=== PATIENT | female | born 1980 | race Caucasian/White ===

== ENCOUNTER 2017-10-11 07:34 | Emergency (ER) | payer OTHER ==
[~2017-10-11] VITALS: Ht 162.6 cm; Wt 110.0 kg
[~2017-10-11 07:34] MED LIST: CARA1TAB2 PO; CELE20TA PO; DONN16.2 PO; IBUP600T26 PO; PANT20TA PO; RANI150C PO; TYLE325T5 PO
[2017-10-11] MEDS ORDERED: XANA0.25 PO (07:51)
[2017-10-11] MEDS ORDERED: KLON1TAB PO (07:51)
[2017-10-11] MEDS ORDERED: ONDANSETRON 4MG/2ML VIAL (J2405) IV ONE (09:15)
[2017-10-11] MEDS: diphenhydrAMINE INJ 50MG/ML VIAL (J1200) IV STA ×2 (09:27→09:32)
[2017-10-11] MEDS ORDERED: NS 1,000 ML IV ONE (09:30)
[2017-10-11 09:43] LABS: BASO # 0.1 10^3/uL (0.0-0.2); BASO % 0.8 % (0.0-1.0); EOS # 0.1 10^3/uL (0.0-0.50); EOS % 0.5 % (0.0-3.0); IMMATURE GRANULOCYTE % 0.4 % (0-0); LYMPH # 2.1 10^3/uL (1.5-4.5); LYMPH % 20.1 % (24.0-44.0); MEAN CORPUSCULAR HEMOGLOBIN 30.8 pg (27.0-33.0); MEAN CORPUSCULAR HGB CONC 33.6 g/dl (32.0-36.5); MEAN CORPUSCULAR VOLUME 91.7 fl (80.0-96.0); MONO # 0.7 10^3/uL (0.0-0.8); MONO % 6.5 % (0.0-5.0); NEUTROPHILS # 7.3 10^3/uL (1.8-7.7); NEUTROPHILS % 71.7 % (36.0-66.0); PLATELET COUNT, AUTOMATED 362 10^3/uL (150-450); RED CELL DISTRIBUTION WIDTH 13.2 % (11.5-14.5); WHITE BLOOD COUNT 10.2 10^3/uL (4.0-10.0)
[2017-10-11 10:09] LABS: ALBUMIN 4.4 GM/DL (3.2-5.2); ALBUMIN/GLOBULIN RATIO 1.16 (1.00-1.93); ALKALINE PHOSPHATASE 113 U/L (45-117); ALT/SGPT 77 U/L (12-78); ANION GAP 10 MEQ/L (8-16); AST/SGOT 53 U/L (7-37); BILIRUBIN,TOTAL 0.5 MG/DL (0.2-1.0); BLOOD UREA NITROGEN 7 MG/DL (7-18); CALCIUM LEVEL 9.5 MG/DL (8.5-10.1); CARBON DIOXIDE LEVEL 25 MEQ/L (21-32); CHLORIDE LEVEL 103 MEQ/L (98-107); CREATININE FOR GFR 0.96 MG/DL (0.55-1.02); GLOMERULAR FILTRATION RATE > 60.0 (>60); GLUCOSE, FASTING 99 MG/DL (70-105); SODIUM LEVEL 138 MEQ/L (136-145); TOTAL PROTEIN 8.2 GM/DL (6.4-8.2)
[2017-10-11] MEDS ORDERED: CEFD1CAP8 PO (10:46)
[2017-10-11] MEDS ORDERED: ZOFR4TAB3 PO (10:46)
[2017-10-11 10:52] VITALS: BP 144/78
[2017-10-13 14:18] LABS: WEST NILE VIRUS ANTIBODY IgM Negative (Negative)
== END 2017-10-11 11:02 | disposition home or self-care (01) ==
LOC: M ED 07:34
DX: J01.90 Acute sinusitis, unspecified (principal); K52.9 Noninfective gastroenteritis and colitis, unspecified
CPT/HCPCS: 80053; 85025; 86788; 86789; 96374; 96375; 99284; J2405

== ENCOUNTER → 2018-10-03 | Outpatient (REF) | payer OTHER | LOC: M SFHCSACK 10:59 | DX: J02.9 Acute pharyngitis, unspecified (principal) ==

== ENCOUNTER → 2019-06-29 | Outpatient (REF) | payer OTHER ==
[~2019-06-29] MED LIST changes: +CEFD1CAP8 PO; +KLON1TAB PO; +XANA0.25 PO; +ZOFR4TAB14 PO
[2019-06-29 14:55] LABS: BASO # 0.1 10^3/uL (0.0-0.2); EOS # 0.1 10^3/uL (0.0-0.50); EOS % 1.3 % (0.0-3.0); HEMATOCRIT 40.7 % (36.0-47.0); HEMOGLOBIN 13.6 g/dl (12.0-15.5); LYMPH # 2.1 10^3/uL (1.5-4.5); LYMPH % 34.3 % (24.0-44.0); MEAN CORPUSCULAR HEMOGLOBIN 31.6 pg (27.0-33.0); MEAN CORPUSCULAR HGB CONC 33.4 g/dl (32.0-36.5); MEAN CORPUSCULAR VOLUME 94.4 fl (80.0-96.0); MONO # 0.4 10^3/uL (0.0-0.8); MONO % 6.4 % (0.0-5.0); NEUTROPHILS # 3.5 10^3/uL (1.8-7.7); NEUTROPHILS % 56.5 % (36.0-66.0); PLATELET COUNT, AUTOMATED 295 10^3/uL (150-450); RED BLOOD COUNT 4.31 10^6/uL (4.00-5.40); WHITE BLOOD COUNT 6.1 10^3/uL (4.0-10.0)
[2019-06-29 15:13] LABS: ALBUMIN 4.1 GM/DL (3.2-5.2); ALT/SGPT 86 U/L (12-78); BILIRUBIN,TOTAL 0.3 MG/DL (0.2-1.0); BLOOD UREA NITROGEN 9 MG/DL (7-18); CALCIUM LEVEL 9.1 MG/DL (8.5-10.1); CARBON DIOXIDE LEVEL 24 MEQ/L (21-32); CHLORIDE LEVEL 108 MEQ/L (98-107); CHOLESTEROL LEVEL 270 MG/DL (<200); CHOLESTEROL RISK RATIO 5.744 (<5); CREATININE FOR GFR 0.72 MG/DL (0.55-1.30); FREE T4 0.91 NG/DL (0.76-1.46); GLOMERULAR FILTRATION RATE > 60.0 (>60); GLUCOSE, FASTING 82 MG/DL (70-100); HDL CHOLESTEROL 47 MG/DL (>40); NON-HDL-C 223 MG/DL; POTASSIUM SERUM 4.2 MEQ/L (3.5-5.1); SODIUM LEVEL 142 MEQ/L (136-145); TOTAL 25(OH) VITAMIN D 10.2 NG/ML (30.0-100.0); TOTAL PROTEIN 7.1 GM/DL (6.4-8.2); TRIGLYCERIDES LEVEL 439 MG/DL (<150)
== END ==
LOC: M SFHCSACK 09:49
PROVIDERS: ATTEND Physician Assistant
DX: Z13.220 Encounter for screening for lipoid disorders (principal); Z13.29 Encounter for screening for other suspected endocrine disorder; Z13.21 Encounter for screening for nutritional disorder

== ENCOUNTER → 2019-08-29 | Outpatient (REF) | payer OTHER ==
[2019-08-29 16:11] LABS: BASO # 0.1 10^3/uL (0.0-0.2); BASO % 0.7 % (0.0-1.0); EOS # 0.1 10^3/uL (0.0-0.5); HEMATOCRIT 40.8 % (36.0-47.0); HEMOGLOBIN 13.7 g/dl (12.0-15.5); LYMPH # 2.2 10^3/uL (1.5-5.0); LYMPH % 26.7 % (24.0-44.0); MEAN CORPUSCULAR HEMOGLOBIN 32.8 pg (27.0-33.0); MEAN CORPUSCULAR HGB CONC 33.6 g/dl (32.0-36.5); MEAN CORPUSCULAR VOLUME 97.6 fl (80.0-96.0); MONO # 0.5 10^3/uL (0.0-0.8); MONO % 5.5 % (0.0-5.0); NEUTROPHILS # 5.4 10^3/uL (1.5-8.5); NEUTROPHILS % 65.7 % (36.0-66.0); PLATELET COUNT, AUTOMATED 320 10^3/uL (150-450); RED BLOOD COUNT 4.18 10^6/uL (4.00-5.40); WHITE BLOOD COUNT 8.2 10^3/uL (4.0-10.0)
[2019-08-29 16:28] LABS: ALBUMIN 4.5 GM/DL (3.2-5.2); ALT/SGPT 79 U/L (12-78); BILIRUBIN,TOTAL 0.8 MG/DL (0.2-1.0); BLOOD UREA NITROGEN 12 MG/DL (7-18); CALCIUM LEVEL 9.1 MG/DL (8.5-10.1); CARBON DIOXIDE LEVEL 23 MEQ/L (21-32); CHLORIDE LEVEL 106 MEQ/L (98-107); CREATININE FOR GFR 0.88 MG/DL (0.55-1.30); GLOMERULAR FILTRATION RATE > 60.0 (>60); GLUCOSE, FASTING 96 MG/DL (70-100); POTASSIUM SERUM 4.1 MEQ/L (3.5-5.1); SODIUM LEVEL 138 MEQ/L (136-145); TOTAL PROTEIN 7.5 GM/DL (6.4-8.2)
[2019-08-29 16:32] LABS: HEMOGLOBIN A1c 5.7 %
== END ==
LOC: M LAB REF 15:24
PROVIDERS: ATTEND Surgery
DX: Z01.812 Encounter for preprocedural laboratory examination (principal); M79.7 Fibromyalgia; K58.9 Irritable bowel syndrome, unspecified; G44.229 Chronic tension-type headache, not intractable; K26.9 Duodenal ulcer, unspecified as acute or chronic, without hemorrhage or perforation

== ENCOUNTER → 2019-10-08 | Outpatient (REF) | payer OTHER ==
[2019-10-08 14:17] LABS: BASO # 0.1 10^3/uL (0.0-0.2); BASO % 0.9 % (0.0-1.0); EOS # 0.1 10^3/uL (0.0-0.5); EOS % 1.2 % (0.0-3.0); HEMATOCRIT 41.6 % (36.0-47.0); HEMOGLOBIN 13.8 g/dl (12.0-15.5); LYMPH # 2.1 10^3/uL (1.5-5.0); LYMPH % 27.6 % (24.0-44.0); MEAN CORPUSCULAR HEMOGLOBIN 31.9 pg (27.0-33.0); MEAN CORPUSCULAR HGB CONC 33.2 g/dl (32.0-36.5); MEAN CORPUSCULAR VOLUME 96.1 fl (80.0-96.0); MONO # 0.5 10^3/uL (0.0-0.8); MONO % 6.4 % (0.0-5.0); NEUTROPHILS # 4.9 10^3/uL (1.5-8.5); NEUTROPHILS % 63.5 % (36.0-66.0); PLATELET COUNT, AUTOMATED 295 10^3/uL (150-450); RED BLOOD COUNT 4.33 10^6/uL (4.00-5.40); WHITE BLOOD COUNT 7.7 10^3/uL (4.0-10.0)
[2019-10-08 14:23] LABS: ALBUMIN 4.5 GM/DL (3.2-5.2); ALT/SGPT 77 U/L (12-78); BILIRUBIN,TOTAL 0.5 MG/DL (0.2-1.0); BLOOD UREA NITROGEN 9 MG/DL (7-18); CALCIUM LEVEL 9.4 MG/DL (8.5-10.1); CARBON DIOXIDE LEVEL 23 MEQ/L (21-32); CHLORIDE LEVEL 107 MEQ/L (98-107); CHOLESTEROL LEVEL 203 MG/DL (<200); CHOLESTEROL RISK RATIO 3.171 (<5); CREATININE FOR GFR 0.82 MG/DL (0.55-1.30); GLOMERULAR FILTRATION RATE > 60.0 (>60); GLUCOSE, FASTING 91 MG/DL (70-100); HDL CHOLESTEROL 64 MG/DL (>40); LDL CHOLESTEROL 60 MG/DL (<100); NON-HDL-C 139 MG/DL; POTASSIUM SERUM 4.2 MEQ/L (3.5-5.1); SODIUM LEVEL 140 MEQ/L (136-145); TOTAL PROTEIN 7.8 GM/DL (6.4-8.2); TRIGLYCERIDES LEVEL 395 MG/DL (<150)
[2019-10-08 14:34] LABS: TOTAL 25(OH) VITAMIN D 36.8 NG/ML (30.0-100.0)
== END ==
LOC: M SFHCSACK 09:15
PROVIDERS: ATTEND Physician Assistant
DX: K21.9 Gastro-esophageal reflux disease without esophagitis (principal); E78.2 Mixed hyperlipidemia; E55.9 Vitamin D deficiency, unspecified

== ENCOUNTER → 2019-11-19 | Outpatient (CLI) | payer OTHER ==
[2019-11-19 14:21] LABS: BASO # 0.1 10^3/uL (0.0-0.2); BASO % 0.9 % (0.0-1.0); EOS # 0.1 10^3/uL (0.0-0.5); EOS % 1.7 % (0.0-3.0); HEMOGLOBIN 12.9 g/dl (12.0-15.5); LYMPH # 1.6 10^3/uL (1.5-5.0); LYMPH % 27.7 % (24.0-44.0); MEAN CORPUSCULAR HEMOGLOBIN 31.1 pg (27.0-33.0); MEAN CORPUSCULAR HGB CONC 32.3 g/dl (32.0-36.5); MEAN CORPUSCULAR VOLUME 96.4 fl (80.0-96.0); MONO # 0.6 10^3/uL (0.0-0.8); MONO % 9.6 % (0.0-5.0); NEUTROPHILS # 3.5 10^3/uL (1.5-8.5); NEUTROPHILS % 59.8 % (36.0-66.0); PLATELET COUNT, AUTOMATED 317 10^3/uL (150-450); RED BLOOD COUNT 4.15 10^6/uL (4.00-5.40); WHITE BLOOD COUNT 5.9 10^3/uL (4.0-10.0)
[2019-11-19 14:39] LABS: ALBUMIN 4.7 GM/DL (3.2-5.2); ALT/SGPT 186 U/L (12-78); BILIRUBIN,TOTAL 0.3 MG/DL (0.2-1.0); BLOOD UREA NITROGEN 5 MG/DL (7-18); CALCIUM LEVEL 9.4 MG/DL (8.5-10.1); CARBON DIOXIDE LEVEL 24 MEQ/L (21-32); CHLORIDE LEVEL 109 MEQ/L (98-107); CREATININE FOR GFR 0.69 MG/DL (0.55-1.30); FERRITIN 351 NG/ML (8-252); GLOMERULAR FILTRATION RATE > 60.0 (>60); GLUCOSE, FASTING 91 MG/DL (70-100); IRON (FE) 60 UG/DL (50-170); MAGNESIUM LEVEL 2.3 MG/DL (1.8-2.4); PERCENT SATURATION 18.4 % (13.2-45.0); PHOSPHORUS LEVEL 3.6 MG/DL (2.5-4.9); POTASSIUM SERUM 4.1 MEQ/L (3.5-5.1); SODIUM LEVEL 143 MEQ/L (136-145); TOTAL IRON BINDING CAPACITY 326 UG/DL (250-450); TOTAL PROTEIN 7.3 GM/DL (6.4-8.2)
[2019-11-19 15:15] LABS: TOTAL 25(OH) VITAMIN D 71.5 NG/ML (30.0-100.0); VITAMIN B12 LEVEL 695 PG/ML (247-911)
[2019-11-20 08:47] LABS: HEMOGLOBIN A1c 5.5 %
== END ==
LOC: M SFHCSACK 09:59
PROVIDERS: ATTEND Surgery
DX: K91.2 Postsurgical malabsorption, not elsewhere classified (principal); E55.9 Vitamin D deficiency, unspecified; Z98.84 Bariatric surgery status
CPT/HCPCS: 36415; 80053; 82306; 82607; 82728; 82747; 83036; 83550; 83735; 84100; 84425; 85025; G0463

== ENCOUNTER 2021-03-18 21:00 | Observation (INO) | payer OTHER, MEDICAID ==
[~2021-03-18] VITALS: Ht 162.6 cm; Wt 65.0 kg
[2021-03-18] MEDS ORDERED: PANTOPRAZOLE 40MG VIAL (C9113 PER 1) IV ONE (22:35)
[2021-03-18] MEDS ORDERED: METOCLOPRAMIDE INJ 10MG/2ML VIAL (J2765 PER 1) IV ONE (22:35)
[2021-03-18] MEDS ORDERED: MORPHINE 4 MG/ML 1ML VIAL/SYRINGE (J2270) IV ONE (22:35)
[2021-03-18] MEDS ORDERED: NS 1,000 ML IV ONE (22:35)
[2021-03-18 23:07] LABS: BASO # 0.1 10^3/uL (0.0-0.2); BASO % 1.6 % (0.0-1.0); EOS # 0.1 10^3/uL (0.0-0.5); EOS % 2.1 % (0.0-3.0); HEMATOCRIT 42.2 % (36.0-47.0); HEMOGLOBIN 13.9 g/dl (12.0-15.5); LYMPH % 46.3 % (24.0-44.0); MEAN CORPUSCULAR HEMOGLOBIN 32.7 pg (27.0-33.0); MEAN CORPUSCULAR HGB CONC 32.9 g/dl (32.0-36.5); MEAN CORPUSCULAR VOLUME 99.3 fl (80.0-96.0); MONO # 0.4 10^3/uL (0.0-0.8); MONO % 8.8 % (2.0-8.0); NEUTROPHILS # 1.8 10^3/uL (1.5-8.5); PLATELET COUNT, AUTOMATED 192 10^3/uL (150-450); RED BLOOD COUNT 4.25 10^6/uL (4.00-5.40); WHITE BLOOD COUNT 4.3 10^3/uL (4.0-10.0)
[2021-03-18] MEDS ORDERED: ISOVUE-370 76% 100ML VIAL As Ordered ONE (23:27)
[2021-03-18 23:43] LABS: ALBUMIN 4.3 GM/DL (3.2-5.2); BILIRUBIN,DIRECT 0.1 MG/DL (0.0-0.2); BILIRUBIN,TOTAL 0.4 MG/DL (0.2-1.0); TOTAL PROTEIN 7.3 GM/DL (6.4-8.2)
--- NOTE | 2021-03-19 00:23 | REPVR ---
PROCEDURE INFORMATION: Exam: CT Abdomen And Pelvis With Contrast Exam date and time: 03/18/2021 10:35 PM Age: 40 years old Clinical indication: Abdominal pain; Generalized; Patient HX: Vomits when eats; Additional info: Abd pain/unable to keep food down TECHNIQUE: Imaging protocol: Computed tomography of the abdomen and pelvis with contrast. Axial, coronal and sagittal reformatted images were created and reviewed. Radiation optimization: All CT scans at this facility use at least one of these dose optimization techniques: automated exposure control; mA and/or kV adjustment per patient size (includes targeted exams where dose is matched to clinical indication); or iterative reconstruction. Contrast material: ISO; Contrast volume: 100 ml; Contrast route: INTRAVENOUS (IV); COMPARISON: CT ABD PELVIS W/O CONTRAST 08/29/2014 1:41 PM FINDINGS: Liver: Mild hepatomegaly. Diffuse hepatic steatosis. Gallbladder and bile ducts: Mild gallbladder distention without radiodense gallstones. Pancreas: Unremarkable. Spleen: Unremarkable. Adrenal glands: Normal. No mass. Kidneys and ureters: No mass. No radiodense calculi. No hydronephrosis. Stomach and bowel: Status post gastric bypass surgery. No obstruction. No bowel wall thickening. No pneumatosis. Appendix: Normal. Intraperitoneal space: No free fluid. No organized fluid collection. No free air. Vasculature: Unremarkable. No aneurysm. Lymph nodes: No pathologically enlarged lymph nodes. Urinary bladder: Unremarkable as visualized. Reproductive: Unremarkable. Bones/joints: No acute osseous abnormality. Mild degenerative changes. Soft tissues: Unremarkable. IMPRESSION: 1. No CT evidence of acute intra-abdominal or pelvic pathology. 2. Additional findings, as above. Electronically signed by: Armando Aguero On 03/19/2021 00:23:54 AM
--- NOTE | 2021-03-19 01:50 | REPVR ---
PROCEDURE INFORMATION: Exam: US Abdomen, Limited; Right Upper Quadrant Exam date and time: 03/19/2021 1:24 AM Age: 40 years old Clinical indication: Abdominal pain; Acute; Additional info: Ruq pain/elevated lfts TECHNIQUE: Imaging protocol: US abdomen. Real time ultrasound with image documentation. Limited exam focused on the right upper quadrant. COMPARISON: CT ABD/PEL W/IV CONTRAST ONLY 03/18/2021 11:31 PM FINDINGS: Liver: Echogenic, consistent with fatty infiltration. Gallbladder: Mildly distended with a small amount of dependent sludge. No gallstones. No gallbladder wall thickening or pericholecystic fluid. Common bile duct: Mildly dilated to approximately 8 mm. No stones. Pancreas: Unremarkable as visualized. Right kidney: No mass. No definite stones. No hydronephrosis. IMPRESSION: 1. Mild common bile duct dilatation to approximately 8 mm. Correlate with LFTs. 2. Mild gallbladder distention with a small amount of dependent sludge. No sonographic evidence of acute cholecystitis. 3. Fatty liver. Electronically signed by: Armando Aguero On 03/19/2021 01:50:31 AM
[2021-03-19] MEDS ORDERED: HYDROMORPHONE HCL 0.5 MG/ 0.5 ML SYRINGE (J1170 PER 1) IV ONE (02:20)
[2021-03-19] MEDS ORDERED: MAALOX 30 ML SUSP *UDC PO PRN ×2 (02:45→09:10)
[2021-03-19] MEDS ORDERED: MOM 30ML SUSPENSION UDC PO PRN (02:45)
[2021-03-19] MEDS ORDERED: BIOT1CAP2 PO (02:55)
[2021-03-19] MEDS ORDERED: VITMTA PO (02:55)
[2021-03-19] MEDS ORDERED: ZOFR4TAB16 PO (02:55)
[2021-03-19] MEDS ORDERED: VITA-172 PO (02:55)
--- NOTE | 2021-03-19 02:59 | HPEPDOC ---
[facility] Medical History & Physical Date of Admission March 19, 2021 Date of Service: March 19, 2021 History and Physical CHIEF COMPLAINT: Abdominal pain HISTORY OF PRESENT ILLNESS: 40-year-old female history of gastric bypass surgery who presents to the emergency department because of worsening abdominal pain. Patient tells me that for the past 6 days she's been having a poor appetite especially to food she feels nauseated and the smell of food and has been having right upper quadrant pain that is intermittent and ranges from 2 out of 10 to 7 out of 10. She has difficulty describing the pain but says it's sharp at times and dull at other times. Pain does not radiate. She hasn't experienced similar pain in the past. Her pain is not associated with any fevers or chills but it's associated with nausea and occasional vomiting. Movement exacerbates the pain while lying flat makes it better. Imaging in the emergency department shows mild common bile duct dilation and small amount of sludge in the gallbladder. Gastroenterology Dr. Hill was contacted and recommended patient admitted for MRCP and IV fluid hydration. PAST MEDICAL/SURGICAL HISTORY: Gastric bypass surgery October 2019 Hysterectomy at age 25 due to excessive bleeding Oophorectomy Lysis of adhesion surgery 2x SOCIAL HISTORY: Endorses drinking about 1 glass of wine with meals at night Endorses using electronic cigarettes Denies illicit drug use FAMILY HISTORY: Reviewed and none contributory to this admission ALLERGIES: Please see below. REVIEW OF SYSTEMS: 10 point review of systems complete all negative otherwise stated in HPI HOME MEDICATIONS: Please see below. PHYSICAL EXAMINATION: Constitutional: Awake and alert, in no apparent distress ENT: Sclera are clear. Mucosa is moist. Respiratory: Lungs CTA bilaterally. No respiratory distress. Cardiovascular: RRR S1 and S2 are normal, no murmur Gastrointestinal: Abdomen is soft, non distended, mild RUQ tender discomfort on deep palpation, BS present. Musculoskeletal: No lower extremity edema. Neurologic: No focal neurological deficit. Mental Status: A&O x3, normal affect Skin: Warm, dry LABORATORY DATA: See below. IMAGING: See chart MICROBIOLOGY: Please see below. ASSESSMENT/PLAN # RUQ abdominal pain: imaging shows common bile duct dilation 8mm and gall bladd er distension with some sludge. Dr Hill Gi recommended admission for MRCP in the AM. NPO incase she needs ERCP. Pain control. IV Zofran for nausea. Hydration with IVF. # Transaminitis: Elevation in AST/ALT/Alk phos. Bili ok. Could be 2/2 passing of gallstone. Fu Hepatitis panel. Fu repeat liver enzymes in the AM. Consider GI consult if worsening. Fu MRCP results. # DVT prophylaxis: Heparin A [facility] Vital Signs Vital Signs Date Time Temp Pulse Resp B/P (MAP) Pulse Ox O2 Delivery O2 Flow Rate FiO2 03/19/21 02:25 18 03/18/21 21:29 03/18/21 21:00 98.4 96 97 Room Air Laboratory Data Labs 24H Laboratory Tests 2 03/18/21 22:49: Immature Granulocyte % (Auto) 0.2, Neutrophils (%) (Auto) 41.0, Lymphocytes (%) (Auto) 46.3H, Monocytes (%) (Auto) 8.8H, Eosinophils (%) (Auto) 2.1, Basophils (%) (Auto) 1.6H, Neutrophils # (Auto) 1.8, Lymphocytes # (Auto) 2.0, Monocytes # (Auto) 0.4, Eosinophils # (Auto) 0.1, Basophils # (Auto) 0.1, Nucleated Red Blood Cells % (auto) 0.0, Lactic Acid Level 1.8, Total Bilirubin 0.4, Direct Bilirubin 0.1, Aspartate Amino Transf (AST/SGOT) 334H, Alanine Aminotransferase (ALT/SGPT) 163H, Alkaline Phosphatase 168H, Total Protein 7.3, Albumin 4.3, Albumin/Globulin Ratio 1.4, Lipase 142 03/18/21 23:18: POC Glucose (Misc Panel) 93, POC Sodium (Misc Panel) 140, POC Potassium (Misc Panel) 3.9, POC Chloride (Misc Panel) 99, POC Total CO2 (Misc Panel) 31.0H, POC Blood Urea Nitrogen (Misc Panel 7L, POC Ionized Calcium (Misc Panel) 4.3L, POC Creatinine (Misc Panel) 0.9, POC Hematocrit (Misc Panel) 42.0 03/19/21 02:26: CBC/BMP Laboratory Tests 03/18/21 22:49 Allergies Coded Allergies: Penicillins (Verified Allergy, Unknown, 03/18/21) A-FIB/CHADSVASC A-FIB History Current/History of A-Fib/PAF?: No RAY LEYVA MD March 19, 2021 02:59
[2021-03-19] MEDS ORDERED: LORazepam 2 MG/ML VIAL IV ONE (03:05)
[2021-03-19 03:16] LABS: RSV AMPLIFICATION NEGATIVE (NEGATIVE)
[2021-03-19] MEDS: ONDANSETRON 4MG/2ML VIAL IV PRN ×4 (03:27→23:28)
[2021-03-19] MEDS: NS 1,000 ML IV SCH ×2 (03:28→11:48)
--- NOTE | 2021-03-19 05:48 | REPVR ---
PROCEDURE INFORMATION: Exam: MR Abdomen Without Contrast Exam date and time: 03/19/2021 5:01 AM Age: 40 years old Clinical indication: Nausea and vomiting; Patient HX: Upper right abdominal pain for 6 days and vomiting for 2; Additional info: Dilated cbd on US TECHNIQUE: Imaging protocol: MR of the abdomen without contrast. COMPARISON: CT ABD/PEL W/IV CONTRAST ONLY 03/18/2021 11:31 PM FINDINGS: Liver: There is a 5 mm T2 hyperintensity in the right hepatic lobe on series 301 frame 16. A 4 mm T2 hyperintensity seen on series 300 geetha 23 in the left hepatic lobe. Gallbladder and bile ducts: The gallbladder is significantly distended nearly hydropic measuring 9.9 x 4.8 cm with no obvious stones. There is no gallbladder wall thickening or pericholecystic fluid. The cystic duct inserts on the mid CHD. The CHD proximal to the cystic duct insertion is prominent measuring 8 mm. The proximal CBD just distal to the cystic duct insertion is prominent measuring 8 mm with mild distal tapering to 6 mm. There is a nipple like appearance of the distal CBD in the region of the ampulla best appreciated on series 401 frame 13. No filling defect seen in the CBD. Pancreas: Unremarkable. No ductal dilation. Spleen: Unremarkable. No splenomegaly. Adrenal glands: Unremarkable. No mass. Kidneys and ureters: Unremarkable. No solid mass. No hydronephrosis. Stomach and bowel: Visualized stomach and intestines are unremarkable. Intraperitoneal space: No free fluid. Arteries: No abdominal aortic aneurysm. Bones/joints: Unremarkable. Soft tissues: Unremarkable. IMPRESSION: 1. Significant distention of the gallbladder with no evidence of stones and no MRI evidence of cholecystitis. 2. No choledocholithiasis seen. 3. Mildly dilated CHD and proximal CBD with distal tapering of the CBD to 6 mm with a focal area of nipple like narrowing in the region of the ampulla. Underlying ampullary stricture or occult obstructive process cannot be completely excluded. Correlation with clinical history, LFTs and bilirubin level is needed. Continued follow-up or further evaluation with ERCP may be considered depending on patient's clinical history and indications. 4. 5 mm right and 4 mm left hepatic lobe T2 hyperintensities could represent cysts or small hemangiomas. Electronically signed by: Bryan Rice On 03/19/2021 05:47:59 AM
[2021-03-19 07:38] LABS: HEMATOCRIT 36.3 % (36.0-47.0); MEAN CORPUSCULAR HGB CONC 33.1 g/dl (32.0-36.5); MEAN CORPUSCULAR VOLUME 99.7 fl (80.0-96.0); PLATELET COUNT, AUTOMATED 168 10^3/uL (150-450); RED BLOOD COUNT 3.64 10^6/uL (4.00-5.40); WHITE BLOOD COUNT 6.3 10^3/uL (4.0-10.0)
[2021-03-19 07:59] LABS: BLOOD UREA NITROGEN 8 MG/DL (7-18); CALCIUM LEVEL 8.1 MG/DL (8.5-10.1); CARBON DIOXIDE LEVEL 29 MEQ/L (21-32); CHLORIDE LEVEL 106 MEQ/L (98-107); CREATININE FOR GFR 0.65 MG/DL (0.55-1.30); GLOMERULAR FILTRATION RATE > 60.0 (>60); GLUCOSE, FASTING 98 MG/DL (70-100); POTASSIUM SERUM 3.9 MEQ/L (3.5-5.1); SODIUM LEVEL 142 MEQ/L (136-145)
[2021-03-19] MEDS: DOCUSATE SODIUM 100MG CAPSULE PO SCH ×2 (07:59→20:49)
[2021-03-19 08:00] LABS: ALBUMIN 3.6 GM/DL (3.2-5.2); ALT/SGPT 134 U/L (12-78); BILIRUBIN,TOTAL 0.5 MG/DL (0.2-1.0); TOTAL PROTEIN 6.3 GM/DL (6.4-8.2)
[2021-03-19] MEDS: HEPARIN SOD (PORCINE) 5000UNITS/ML 1ML VIAL/SYRINGE SC SCH ×2 (08:01→20:30)
[2021-03-19] MEDS: ACETAMINOPHEN TAB 650MG DOSE (2X325MG) PO PRN ×3 (08:03→21:56)
[2021-03-19] MEDS ORDERED: INFLUENZA QUADRIVALENT PF VACCINE 0.5ML SYRINGE IM ONE (09:00)
[2021-03-19 09:06] LABS: HEPATITIS A ANTIBODY IGM NEGATIVE (NEGATIVE); HEPATITIS B CORE ANTIBODY IGM NEGATIVE (NEGATIVE); HEPATITIS B SURFACE ANTIGEN NEGATIVE (NEGATIVE); HEPATITIS C VIRUS ABY INDEX < 0.0 INDEX (<0.8)
[2021-03-19] MEDS ORDERED: oxyCODONE 5MG TAB PO PRN (09:10)
[2021-03-19] MEDS ORDERED: MORPHINE 2 MG/ML 1ML VIAL (J2270) IV PRN (10:35)
[2021-03-19] MEDS: PANTOPRAZOLE 40MG VIAL (C9113 PER 1) IV SCH ×2 (13:49→20:29)
[2021-03-19 14:00] VITALS: BP 122/82
[2021-03-19] MEDS ORDERED: MORPHINE 2 MG/ML 1ML VIAL (J2270) IV ONE (14:25)
[2021-03-19] MEDS: SUCRALFATE SUSP 1GM/10ML UD PO SCH ×2 (17:24→20:29)
[2021-03-19] MEDS: MORPHINE 2 MG/ML 1ML VIAL (J2270) IV PRN ×2 (17:25→23:29)
--- NOTE | 2021-03-19 17:30 | IPNPDOC ---
Text Note Date of Service The patient was seen on 03/19/21. NOTE S: Pt looks in mild distress due to pain and heart burn today. She states that it's getting better but has some worse moments. Some nausea which is controlled by as needed zofran. O: EXAMINATION: GEN.:Patient looks nontoxic appearing, in no acute distress. HEENT: Nontraumatic, normocephalic, PERRLA, EOMI, no scleral icterus, no conjunctival pallor, mucous membranes moist. CVS:S1-S2 heard with an inspiratory click. No murmurs appreciated LUNGS: Symmetrical bilateral breath sounds. No wheezing, crackles, rales heard. ABDOMEN: Nondistended, soft. Tender in the right upper quadrant on deep palpation, Monae's sign positive, normal bowel sounds heard. No rashes seen. NEURO: Gross motor strength normal, sensations intact. Cranial nerves 2-12 normal SKIN: Some bruises over the bilateral shins and knees due to local trauma. Otherwise unremarkable. PSYCH:Patient's mood and affect is normal IMAGING: : CT ABD/PEL W/IV CONTRAST ONLY done on 03/18/2021 :Liver: Mild hepatomegaly. Diffuse hepatic steatosis. Gallbladder and bile ducts: Mild gallbladder distention without radiodense gallstones. GALLBLADDER US done on 03/19/2021:IMPRESSION: 1. Mild common bile duct dilatation to approximately 8 mm. Correlate with LFTs. 2. Mild gallbladder distention with a small amount of dependent sludge. No sonographic evidence of acute cholecystitis. 3. Fatty liver. MRI ABDOMEN WITHOUT CONTRAST done on 03/19/2021:IMPRESSION: 1. Significant distention of the gallbladder with no evidence of stones and no MRI evidence of cholecystitis. 2. No choledocholithiasis seen. 3. Mildly dilated CHD and proximal CBD with distal tapering of the CBD to 6 mm with a focal area of nipple like narrowing in the region of the ampulla. Underlying ampullary stricture or occult obstructive process cannot be completely excluded. Correlation with clinical history, LFTs and bilirubin level is needed. Continued follow-up or further evaluation with ERCP may be considered depending on patient's clinical history and indications. 4. 5 mm right and 4 mm left hepatic lobe T2 hyperintensities could represent cysts or small hemangiomas. ASSESSMENT AND PLAN: This is a 40-year-old female with a history of gastric bypass surgery(Drake-en-Y) done in 2019, endometriosis, irritable bowel syndrome, fibromyalgia, toward no ulcer disease who presents to the emergency department today for intermittent right upper quadrant abdominal pain which ranges from 2 out of 10-7 out of 10 in intensity sharp in nature with no radiation, exacerbated by-movement and relieved on staying still. Patient states she started with pain last since then it has progressively worsened finally making it unbearable for the patient and that's why she reports eating. In the ED patient was found to have transaminitis with AST being 334, ALT-163, alkaline phosphatase-168 and normal bilirubin concerning for possible cholecystitis/ cholangitis/pancreatitis. CT abdomen showed mild gallbladder distention without gallstones, normal pancreas. GI was consulted from the ED who recommended getting an MRCP and to admit the patient for IV fluid hydration. RUQ abdominal pain most likely due to CBD dilatation secondary to CBD stones versus Infection versus anastomotic ulcer versus Malignancy: -Patient started on IV fluid -Patient has been put on pain control with IV morphine 1 mg every 6 hours for moderate to severe pain and Tylenol for mild to moderate pain. -Patient has not vomited since yesterday but continues to be nauseated. -Patient's nausea is treated with Zofran as needed. -GI consulted.- As per Dr. Hill, the patient having a gastric bypass surgery makes this a complicated case, so he will discuss the MRCP results with radiology to make sure that there are the patient can be managed supportively or a therapeutic ERCP is required. -Pt was discussed with radiology who states they cannot completely rule out the possibility of a narrowing. -She was offered an EGD to look for a possible anastomotic ulcer from her Gastric bypass surgery and attempting an ERCP along with, tomorrow here at [facility]. -Waiting for further recommendations by GI. HEARTBURN: -Patient reports chronic heartburn which she does not take any medication for. -Mylanta 30 mL every 6 hours as needed by mouth ordered for relief. ANXIETY: Pt was given one dose of Ativan for stress and tearfulness. t VS,Fishbone, I+O VS, Fishbone, I+O Laboratory Tests 03/18/21 22:49 03/19/21 06:59 Vital Signs Date Time Temp Pulse Resp B/P (MAP) Pulse Ox O2 Delivery O2 Flow Rate FiO2 03/19/21 11:08 18 5/6/21 06:13 97.9 78 138/75 (96) 99 Room Air I&O- Last 24 Hours up to 6 AM 03/19/21 05:59 Intake Total 1000 ml Balance 1000 ml GME ATTESTATION GME ATTESTATION My faculty preceptor for this patient encounter was physically present during the encounter and was fully available. All aspects of the patient interview, examination, medical decision making process, and medical care plan development were reviewed and approved by the faculty preceptor. The faculty preceptor is aware and concurs with the plan as stated in the body of this note and will att est to such by his/her cosignature. Manuel Patel MD March 19, 2021 12:07
[2021-03-19 21:27] VITALS: BP 151/94
[2021-03-20] MEDS: ACETAMINOPHEN TAB 650MG DOSE (2X325MG) PO PRN ×3 (03:10→18:28)
[2021-03-20] MEDS: ONDANSETRON 4MG/2ML VIAL IV PRN ×3 (05:54→20:21)
[2021-03-20 06:53] VITALS: BP 108/64
[2021-03-20] MEDS: HEPARIN SOD (PORCINE) 5000UNITS/ML 1ML VIAL/SYRINGE SC SCH ×2 (08:15→20:26)
[2021-03-20] MEDS: PANTOPRAZOLE 40MG VIAL (C9113 PER 1) IV SCH (08:15)
[2021-03-20] MEDS: DOCUSATE SODIUM 100MG CAPSULE PO SCH ×4 (08:15→20:24)
[2021-03-20] MEDS: SUCRALFATE SUSP 1GM/10ML UD PO SCH ×4 (08:15→20:24)
[2021-03-20 08:30] LABS: BASO % 0.9 % (0.0-1.0); EOS # 0.1 10^3/uL (0.0-0.5); EOS % 2.3 % (0.0-3.0); HEMOGLOBIN 12.1 g/dl (12.0-15.5); LYMPH # 1.1 10^3/uL (1.5-5.0); LYMPH % 25.5 % (24.0-44.0); MEAN CORPUSCULAR HEMOGLOBIN 32.7 pg (27.0-33.0); MEAN CORPUSCULAR HGB CONC 32.7 g/dl (32.0-36.5); MONO # 0.6 10^3/uL (0.0-0.8); MONO % 13.4 % (2.0-8.0); NEUTROPHILS # 2.5 10^3/uL (1.5-8.5); NEUTROPHILS % 57.7 % (36.0-66.0); PLATELET COUNT, AUTOMATED 170 10^3/uL (150-450); WHITE BLOOD COUNT 4.4 10^3/uL (4.0-10.0)
[2021-03-20 08:49] LABS: ALBUMIN 3.8 GM/DL (3.2-5.2); ALT/SGPT 145 U/L (12-78); BILIRUBIN,TOTAL 1.1 MG/DL (0.2-1.0); BLOOD UREA NITROGEN 6 MG/DL (7-18); CALCIUM LEVEL 9.1 MG/DL (8.5-10.1); CARBON DIOXIDE LEVEL 26 MEQ/L (21-32); CHLORIDE LEVEL 101 MEQ/L (98-107); CREATININE FOR GFR 0.61 MG/DL (0.55-1.30); GLOMERULAR FILTRATION RATE > 60.0 (>60); GLUCOSE, FASTING 75 MG/DL (70-100); POTASSIUM SERUM 3.7 MEQ/L (3.5-5.1); SODIUM LEVEL 138 MEQ/L (136-145); TOTAL PROTEIN 7.1 GM/DL (6.4-8.2)
[2021-03-20] MEDS: PANTOPRAZOLE 40MG TAB (PROTONIX) PO SCH ×2 (12:49→20:24)
[2021-03-20] MEDS ORDERED: LORazepam 1 MG TAB PO ONE (13:15)
[2021-03-20 14:18] VITALS: BP 150/91
[2021-03-20] MEDS ORDERED: LORazepam 2 MG/ML VIAL IV PRN (15:20)
[2021-03-20] MEDS: MORPHINE 2 MG/ML 1ML VIAL (J2270) IV PRN ×2 (15:53→20:45)
--- NOTE | 2021-03-20 17:22 | CR.PDOC ---
General Date of Consultation: March 19, 2021 Referring Provider: RAY LEYVA MD Attending Physician: JAYDA OLIVO MD Consultation Referring physician / PCP: Dr. Leyva, Reason for consult: Abdominal pain and abnormal liver panel. HPI: 40-year-old female patient with prior gastric bypass surgery in Oct 2019, with current BMI 24, and no other medical comorbidities, presented to ER for complaints of worsening abdominal pain. Patient reports that her symptoms started around 1 week ago with abdominal pain, epigastric area and right upper quadrant, with severe nausea and few episodes of vomiting. Patient reports taking OTC medications, including tums and Pepcid for couple of times with some improvement but it continues to get worse with sharp severe pain at times. Patient denies any hematemesis or black stools but reports she was going through a lot of stress over the last few weeks due to her work and moving of her house. She also reports remote history of duodenal ulcer. Patient denies any fever or chills at this time. Patient appears anxious. She denies any OTC herbal medi cations or nutrition supplements. She also denies heavy alcohol use. Pertinent negative GI symptoms: Patient denies diarrhea, loss of appetite, early satiety or unintentional weight loss, hematemesis, melena or hematochezia. 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 : No blood in urine, No burning sensation of the urine ENT: No ear discharge/ pain, No dysphagia. Eyes: No photophobia. Skin: No rash Home medications: reviewed. No Plavix and No anticoagulants Medical h/o: As above. Surgical h/o: : Laparoscopic Gastric bypass surgery done in 2019. Hysterectomy at age 25. Prior abdominal adhesiolysis. . Social h/o: Drinks one drink of wine with meals at night, smoking, IVDA/ drugs. Family h/o of GI cancers - None Prior Endoscopies: None in [facility]. Prior GI evaluation: None in [facility] Exam: Vitals: reviewed General: Alert and oriented x 3, not in acute distress HEENT: No pallor, no icterus. Normal oropharynx, No cervical lymphadenopathy. Chest: symmetric with bilateral air entry, CVS: S1, S2 heard, Abdomen: non-distended, soft, moderate tenderness in the epigastric and right upper quadrant, no rigidity and no involuntary guarding, no palpable masses, normal bowel sounds heard. Rectal exam: Patient refused / Deferred at this time. Extremities: pulses palpable, no pedal edema, FLANGE MACHINE OPERATOR: no focal motor or sensory deficits. Moves all extremities Skin: no rash. Labs: reviewed. Patient is noted to have mild transaminitis past as well but worsening in this admission. Imaging: reviewed. All the radiology images reviewed with radiologist in person. As per the review it was opined -- borderline CBD dilation, the intrahepatic ducts are not that prominent, there is no definitive imaging evidence of obstructing stone in CBD and no gallstones. Ultrasound suggested some sludge. Impression: -- 40 year old female patient with prior maurice-en-Y gastric bypass without cholecystectomy, remote history of duodenal ulcer, presented with right upper quadrant pain and epigastric pain, associated nausea and vomiting, labs showing normal Hemoglobin and hematocrit but abnormal liver chemistries, with elevated ALP and ALT with mild elevated bilirubin, and imaiging tests showing borderline CBD dilation with gall bladder sludge DDx Likely small distal CBD stone vs ampullary mass vs anastomotic ulcer with anastomotic stenosis. Trending the liver enzymes showed worsening liver panel. Recommendations: -- Patient educated about the prior test results and all questions answered. -- Will continue on high dose PPI pantoprazole 40 mg twice daily to be taken director visual on empty stomach and at bedtime., and sucralfate 1gm/ 10ml oral 4 times a day. -- Clear liquid diet as tolerated for now. -- MRCP was obtained and reviewed. -- Patient was initially educated on possible EGD if persistent epigastric pain, but due to improvement of the pain, the scheduled procedure was put on hold. -- Due to worsening liver chemistries, patient is educated about the need for further evaluation of the CBD. In view of the maurice-en-Y gastric bypass, would need a longer scope to reach the ampulla or surgical gastrostomy access to the remnant distal gastric pouch and ERCP through the gastrostomy. Unfortunately, these procedures are not available in [facility] and as per discussion with the patient , she wanted to proceed with the transfer to [facility] for further management. -- Patient is explained all the therapy options and alternatives and she verbalized understanding. She was requesting for possible [facility] in [place] if bed are available. ( patient follows with Dr. oClón (gastric bypass surgery in [facility])). -- Plan of care educated to patient and patient verbalized understanding and agreed. All questions answered. -- Recommendations communicated to primary team. Patient to follow with PCP upon discharge for routine medical care. Vital Signs/I&O Vital Signs Date Time Temp Pulse Resp B/P (MAP) Pulse Ox O2 Delivery O2 Flow Rate FiO2 03/20/21 16:03 18 03/20/21 14:18 98.8 70 150/91 (110) 96 Room Air I&O- Last 24 Hours up to 6 AM 03/20/21 06:00 Intake Total 2470 ml Output Total 0 ml Balance 2470 ml Laboratory Data Labs 24H Laboratory Tests 2 03/20/21 08:15: Immature Granulocyte % (Auto) 0.2, Neutrophils (%) (Auto) 57.7, Lymphocytes (%) (Auto) 25.5, Monocytes (%) (Auto) 13.4H, Eosinophils (%) (Auto) 2.3, Basophils (%) (Auto) 0.9, Neutrophils # (Auto) 2.5, Lymphocytes # (Auto) 1.1L, Monocytes # (Auto) 0.6, Eosinophils # (Auto) 0.1, Basophils # (Auto) 0.0, Nucleated Red Blood Cells % (auto) 0.0, Anion Gap 11, Glomerular Filtration Rate > 60.0, Calcium Level 9.1, Total Bilirubin 1.1#H, Aspartate Amino Transf (AST/SGOT) 307H, Alanine Aminotransferase (ALT/SGPT) 145H, Alkaline Phosphatase 158H, Total Protein 7.1, Albumin 3.8, Albumin/Globulin Ratio 1.2 CBC/BMP Laboratory Tests 03/20/21 08:15 Allergies Coded Allergies: Penicillins (Verified Allergy, Unknown, 03/18/21) Home Medications Scheduled Biotin (Biotin) 1 Mg Capsule, 1 MG PO DAILY, (Reported) Cyanocobalamin (Vitamin B-12) (Vitamin B-12) 500 Mcg Tablet, 500 MCG PO DAILY, (Reported) Multivitamins (Thera M Plus Tablet) 1 Each Tablet, 1 TAB PO DAILY, (Reported) Scheduled PRN Ondansetron HCl (Zofran) 4 Mg Tablet, 4 MG PO TID PRN for NAUSEA, (Reported) JAYDA OLIVO MD March 20, 2021 17:22
[2021-03-20] MEDS ORDERED: LORazepam 2 MG/ML VIAL IV ONE ×2 (17:30→20:15)
--- NOTE | 2021-03-20 18:18 | DS.PDOC ---
Discharge Summary General Date of Admission March 18, 2021 at 21:01 Date of Discharge 03/20/2021 Attending Physician: KAREN ALVAREZ MD Specialist/Consultants Involve: JAYDA OLIVO MD Discharge Summary PROCEDURES PERFORMED DURING STAY: None. ADMITTING DIAGNOSES: 1. RUQ abdominal pain 2. Transaminitis DISCHARGE DIAGNOSES: 1. RUQ abdominal pain most likely due to CBD dilatation secondary to CBD stones versus Infection versus Malignancy 2. Transaminitis 3. Heartburn COMPLICATIONS/CHIEF COMPLAINT: Common Bile Duct Dilation. HISTORY OF PRESENT ILLNESS: Patient is a 40-year-old female with history of gastric bypass surgery (10/2019 at [facility]) who presents to the emergency department because of worsening abdominal pain on evening of 03/18/2021. Per patient, for the past 6 days she's been having a poor appetite and nausea (especially triggered by the smell of food). She also reported associated right upper quadrant abd pain that is intermittent and ranged from 2 out of 10 to 7 out of 10. She has difficulty describing the pain but says it's sharp at times and dull at other times. Pain does not radiate. She hasn't experienced similar pain in the past. Her pain is not associated with any fevers or chills but she reported occasional vomiting. Movement exacerbates the pain and lying flat makes it better. Imaging in the emergency department shows mild common bile duct dilation and small amount of sludge in the gallbladder. Her LFT showed transaminitis (AST 334, ALT 163, alk phos 168). Gastroenterology Dr. Olivo was contacted and recommended patient admitted for MRCP and IV fluid hydration. Patient was subsequently admitted on 03/19/2021. HOSPITAL COURSE: Patients MRCP returned showing significant distention of the gallbladder with no evidence of stones, cholecystitis or choledocholithiasis. However, CHD and CBD was mildly dilated with a focal area of nipple like narrowing in the region of the ampulla in which underlying ampullary stricture or occult obstructive process cannot be completely excluded. ERCP was recommended if clinically indicated. Her repeat LFTs were trending down without elevated bilirubin, and patient remained afebrile without leukocytosis. Her hepatitis panel was also negative. Results were discussed with Dr. Olivo advised that patients gastric bypass surgery can complicate ERCP and might req uire transfer to another center for more specialized equipment. Given her improvement in labs, supportive treatment with EGD but no ERCP was recommended. Patient was treated with IVF, protonix, sucralfate, tylenol and morphine. However, on 03/20, patients LFT chandrakant again (AST 307, ALT 145, alk phos 158) along with elevation in total bilirubin (1.1). Given the acute changes, Dr. Olivo recommended taking patient for EGD and ERCP with anticipation to require ERCP with a longer scope or involvement of general surgery for ERCP through a gastrostomy pouch given her bypass history. She was also given the option to be transferred to [facility] (where patient had her gastric bypass surgery ) for further management. She elected the latter and was subsequently transferred on 03/20/[address] [facility] after transfer arrangements were made. Dr. Ho (general surgery) accepted transfer request. On the morning of transfer, patient reported her abd pain completely resolved overnight. She denied fever, chills, CP, SOB, N/V/D and urinary symptoms. Patient was given 1 dose of zofran to treat motion-sickness prior to departure. DISCHARGE MEDICATIONS: Please see below. ALLERGIES: Please see below. PHYSICAL EXAMINATION ON DISCHARGE: VITAL SIGNS: See below GENERAL APPEARANCE: Revealed 40 y/o F, alert & oriented x3, anxious and tearful but in no Acute Distress. HEENT Exam: Normocephalic and atraumatic, PERRL, conjunctiva & lids normal, EOMI, without sclera icteric, mucous membr. moist/pink, pharynx normal, nares patent. NECK: Supple without lymphadenopathy, JVD, thyromegaly LUNGS: Clear to auscultation bilaterally with full breath sounds without rales, wheezing, and crackles. No dullness to percussion. CARDIOVASCULAR: Regular rate and rhythm, normal S1-S2 with an inspiratory click without gallops, murmurs, rubs ABDOMEN: Soft, non-tender, non-distended with normal bowel sounds. No masses or ecchymosis or hepatosplenomegaly. EXTREMITIES: 2+ pulses in all extremities. No clubbing, cyanosis, edema, tenderness SKIN: Normal turgor and temperature. No rash, lesion. Some bruises over the bilateral shins and knees due to local trauma. MUSCULOSKELETAL: Strength +5/5 in all extremities without tenderness. NEUROLOGICAL: Normal speech with intact sensation, cranial nerves III-XII normal. No signs of gross focal neurological deficit. PSYCHIATRIC: Tearful, anxious. LABORATORY DATA: Please see below. IMAGING: CT ABD/PEL W/IV CONTRAST ONLY done on 03/18/2021 Liver: Mild hepatomegaly. Diffuse hepatic steatosis. Gallbladder and bile ducts: Mild gallbladder distention without radiodense gallstones. GALLBLADDER US done on 03/19/2021: IMPRESSION: 1. Mild common bile duct dilatation to approximately 8 mm. Correlate with LFTs. 2. Mild gallbladder distention with a small amount of dependent sludge. No sonographic evidence of acute cholecystitis. 3. Fatty liver. MRI ABDOMEN WITHOUT CONTRAST done on 03/19/2021: IMPRESSION: 1. Significant distention of the gallbladder with no evidence of stones and no MRI evidence of cholecystitis. 2. No choledocholithiasis seen. 3. Mildly dilated CHD and proximal CBD with distal tapering of the CBD to 6 mm with a focal area of nipple like narrowing in the region of the ampulla. Underlying ampullary stricture or occult obstructive process cannot be completely excluded. Correlation with clinical history, LFTs and bilirubin level is needed. Continued follow-up or further evaluation with ERCP may be considered depending on patient's clinical history and indications. 4. 5 mm right and 4 mm left hepatic lobe T2 hyperintensities could represent cysts or small hemangiomas. PROGNOSIS: Fair ACTIVITY: As tolerated DIET: As tolerated DISCHARGE PLAN: Transfer to [facility]. DISPOSITION: Transfer to [facility]. DISCHARGE INSTRUCTIONS: 1. None ITEMS TO FOLLOWUP ON ON OUTPATIENT: 1. None DISCHARGE CONDITION: Stable. TIME SPENT ON DISCHARGE: Greater than 35 minutes. Vital Signs/I&Os Vital Signs Date Time Temp Pulse Resp B/P (MAP) Pulse Ox O2 Delivery O2 Flow Rate FiO2 03/20/21 16:03 18 03/20/21 14:18 98.8 70 150/91 (110) 96 Room Air I&O- Last 24 Hours up to 6 AM 03/20/21 06:00 Intake Total 2470 ml Output Total 0 ml Balance 2470 ml Laboratory Data Labs 24H Laboratory Tests 2 03/20/21 08:15: Immature Granulocyte % (Auto) 0.2, Neutrophils (%) (Auto) 57.7, Lymphocytes (%) (Auto) 25.5, Monocytes (%) (Auto) 13.4H, Eosinophils (%) (Auto) 2.3, Basophils (%) (Auto) 0.9, Neutrophils # (Auto) 2.5, Lymphocytes # (Auto) 1.1L, Monocytes # (Auto) 0.6, Eosinophils # (Auto) 0.1, Basophils # (Auto) 0.0, Nucleated Red Blood Cells % (auto) 0.0, Anion Gap 11, Glomerular Filtration Rate > 60.0, Calcium Level 9.1, Total Bilirubin 1.1#H, Aspartate Amino Transf (AST/SGOT) 307H, Alanine Aminotransferase (ALT/SGPT) 145H, Alkaline Phosphatase 158H, Total Protein 7.1, Albumin 3.8, Albumin/Globulin Ratio 1.2 CBC/BMP Laboratory Tests 03/20/21 08:15 Discharge Medications Scheduled Biotin (Biotin) 1 Mg Capsule, 1 MG PO DAILY, (Reported) Cyanocobalamin (Vitamin B-12) (Vitamin B-12) 500 Mcg Tablet, 500 MCG PO DAILY, (Reported) Multivitamins (Thera M Plus Tablet) 1 Each Tablet, 1 TAB PO DAILY, (Reported) Scheduled PRN Ondansetron HCl (Zofran) 4 Mg Tablet, 4 MG PO TID PRN for NAUSEA, (Reported) Allergies Coded Allergies: Penicillins (Verified Allergy, Unknown, 03/18/21) GME ATTESTATION GME ATTESTATION My faculty preceptor for this patient encounter was physically present during t he encounter and was fully available. All aspects of the patient interview, examination, medical decision making process, and medical care plan development were reviewed and approved by the faculty preceptor. The faculty preceptor is aware and concurs with the plan as stated in the body of this note and will attest to such by his/her cosignature. ESMER PEDRO OMS-3 March 20, 2021 18:18
[2021-03-20 20:10] VITALS: BP 152/91
== END 2021-03-20 20:53 | disposition other institution (70) ==
LOC: M ED 21:00 → M ED INP 21:01 → ENRESERVTM 03-19 06:09 → M MS5PR 03-19 06:30
PROVIDERS: ADMIT Family Medicine; ATTEND Internal Medicine
DX: R10.11 Right upper quadrant pain (principal); R74.01 Elevation of levels of liver transaminase levels; R12 Heartburn; K58.8 Other irritable bowel syndrome; M79.7 Fibromyalgia; Z98.84 Bariatric surgery status; Z88.0 Allergy status to penicillin; Z79.899 Other long term (current) drug therapy; F17.290 Nicotine dependence, other tobacco product, uncomplicated
CPT/HCPCS: 36415; 74177; 74181; 76705; 80047; 80053; 80076; 83605; 83690; 85025; 85027; 86705; 86709; 86803; 87340; 87631; 96361; 96374; 96375; 96376; 99284; C9113; J1170; J2060; J2270; J2405; J2765; Q9967

== ENCOUNTER 2021-10-10 14:40 | Emergency (ER) | payer OTHER, MEDICAID ==
[~2021-10-10] VITALS: Ht 162.6 cm; Wt 65.0 kg
[~2021-10-10 14:40] MED LIST changes: +BIOT1CAP2 PO; -CEFD1CAP8 PO; +CEFD300C41 PO; +VITA-172 PO; +VITMTA PO; +ZOFR4TAB16 PO
[2021-10-10] MEDS ORDERED: PERCOCET 5MG/325MG TAB PO ONE (17:10)
[2021-10-10 18:13] VITALS: BP 133/90
[2021-10-10] MEDS ORDERED: CYCL5TAB PO (18:54)
[2021-10-10] MEDS ORDERED: HYDR-3713 PO (18:54)
[2021-10-10] MEDS ORDERED: PRED20TA PO (18:54)
== END 2021-10-10 19:17 | disposition home or self-care (01) ==
LOC: M ED 14:40
DX: S70.02XA Contusion of left hip, initial encounter (principal); S20.212A Contusion of left front wall of thorax, initial encounter; W10.9XXA Fall (on) (from) unspecified stairs and steps, initial encounter; Y92.009 Unspecified place in unspecified non-institutional (private) residence as the place of occurrence of the external cause; Y93.9 Activity, unspecified; Y99.9 Unspecified external cause status; K21.9 Gastro-esophageal reflux disease without esophagitis; F41.9 Anxiety disorder, unspecified; F32.9 Major depressive disorder, single episode, unspecified; Z98.84 Bariatric surgery status; Z88.0 Allergy status to penicillin

== ENCOUNTER 2022-04-18 17:08 | Inpatient (IN) | payer MEDICAID, OTHER ==
[~2022-04-18] VITALS: Ht 162.6 cm; Wt 71.0 kg
[~2022-04-18 17:08] MED LIST changes: +CYCL5TAB PO; +HYDR-3713 PO; +PRED20TA PO
[2022-04-18 17:50] LABS: INR 1.91; PROTHROMBIN TIME 22.3 SECONDS (12.7-14.5)
[2022-04-18 17:51] LABS: PARTIAL THROMBOPLASTIN TIME 58.2 SECONDS (25.9-37.0)
[2022-04-18 18:07] LABS: ALBUMIN 2.7 GM/DL (3.2-5.2); ALT/SGPT 52 U/L (12-78); AMYLASE 68 U/L (25-115); BILIRUBIN,DIRECT 7.6 MG/DL (0.0-0.2); BILIRUBIN,TOTAL 9.8 MG/DL (0.2-1.0); BLOOD UREA NITROGEN 4 MG/DL (7-18); CALCIUM LEVEL 8.3 MG/DL (8.5-10.1); CARBON DIOXIDE LEVEL 24 MEQ/L (21-32); CHLORIDE LEVEL 73 MEQ/L (98-107); CREATININE FOR GFR 0.59 MG/DL (0.55-1.30); ETHYL ALCOHOL (ETHANOL) 0.085 % (0.000-0.010); GLOMERULAR FILTRATION RATE > 60.0 (>60); GLUCOSE, FASTING 73 MG/DL (70-100); LIPASE 545 U/L (73-393); POTASSIUM SERUM 3.4 MEQ/L (3.5-5.1); SODIUM LEVEL 115 MEQ/L (136-145); TOTAL PROTEIN 6.1 GM/DL (6.4-8.2)
[2022-04-18 18:08] LABS: ACETAMINOPHEN LEVEL < 2.0 UG/ML (10.0-30.0); SALICYLATE LEVEL < 1.7 MG/DL (5.0-30.0)
[2022-04-18 18:16] LABS: BASO % 0.3 % (0.0-1.0); EOS # 0.1 10^3/uL (0.0-0.5); EOS % 0.7 % (0.0-3.0); HEMATOCRIT 28.5 % (36.0-47.0); HEMOGLOBIN 10.7 g/dl (12.0-15.5); LYMPH # 1.8 10^3/uL (1.5-5.0); LYMPH % 13.3 % (24.0-44.0); MEAN CORPUSCULAR HEMOGLOBIN 33.9 pg (27.0-33.0); MEAN CORPUSCULAR HGB CONC 37.5 g/dl (32.0-36.5); MEAN CORPUSCULAR VOLUME 90.2 fl (80.0-96.0); MONO # 1.1 10^3/uL (0.0-0.8); MONO % 7.9 % (2.0-8.0); NEUTROPHILS # 10.2 10^3/uL (1.5-8.5); NEUTROPHILS % 76.7 % (36.0-66.0); PLATELET COUNT, AUTOMATED 144 10^3/uL (150-450); RED BLOOD COUNT 3.16 10^6/uL (4.00-5.40); WHITE BLOOD COUNT 13.3 10^3/uL (4.0-10.0)
[2022-04-18 18:21] LABS: MAGNESIUM LEVEL 1.6 MG/DL (1.8-2.4)
[2022-04-18] MEDS ORDERED: SODIUM CHLORIDE 3% 500 ML IV SCH (18:30)
[2022-04-18] MEDS ORDERED: ISOVUE-370 76% 100ML VIAL As Ordered ONE (18:31)
[2022-04-18] MEDS ORDERED: LORazepam 2 MG TAB PO PRN (18:35)
[2022-04-18] MEDS ORDERED: LevoFLOXacin IV 750 MG in IV 1 EA IV ONE (19:40)
[2022-04-18] MEDS ORDERED: SUCR1TAB56 PO (19:49)
[2022-04-18] MEDS ORDERED: OMEP40CA5 PO (19:49)
[2022-04-18] MEDS ORDERED: HYDR-3363 PO (19:49)
[2022-04-18] MEDS ORDERED: HOME MED LIST COMPLETE! XX SCH (19:50)
[2022-04-18 20:36] LABS: RSV AMPLIFICATION NEGATIVE (NEGATIVE)
[2022-04-18 21:28] LABS: BLOOD UREA NITROGEN 4 MG/DL (7-18); CALCIUM LEVEL 7.4 MG/DL (8.5-10.1); CARBON DIOXIDE LEVEL 22 MEQ/L (21-32); CHLORIDE LEVEL 77 MEQ/L (98-107); CREATININE FOR GFR 0.55 MG/DL (0.55-1.30); GLOMERULAR FILTRATION RATE > 60.0 (>60); GLUCOSE, FASTING 65 MG/DL (70-100); POTASSIUM SERUM 3.6 MEQ/L (3.5-5.1); SODIUM LEVEL 115 MEQ/L (136-145)
[2022-04-19 01:11] LABS: BLOOD UREA NITROGEN 3 MG/DL (7-18); CALCIUM LEVEL 7.4 MG/DL (8.5-10.1); CARBON DIOXIDE LEVEL 25 MEQ/L (21-32); CHLORIDE LEVEL 78 MEQ/L (98-107); CREATININE FOR GFR 0.51 MG/DL (0.55-1.30); GLOMERULAR FILTRATION RATE > 60.0 (>60); GLUCOSE, FASTING 62 MG/DL (70-100); MAGNESIUM LEVEL 1.5 MG/DL (1.8-2.4); POTASSIUM SERUM 3.1 MEQ/L (3.5-5.1); SODIUM LEVEL 116 MEQ/L (136-145)
[2022-04-19] MEDS ORDERED: predniSONE 20 MG TAB PO ONE (02:00)
[2022-04-19 03:30] LABS: AMPHETAMINES LEVEL URINE NEGATIVE (NEGATIVE); BARBITURATES URINE NEGATIVE (NEGATIVE); BENZODIAZEPINES URINE NEGATIVE (NEGATIVE); CANNABINOIDS URINE NEGATIVE (NEGATIVE); COCAINE METABOLITE URINE NEGATIVE (NEGATIVE); METHADONE URINE NEGATIVE (NEGATIVE); OPIATES URINE NEGATIVE (NEGATIVE); PHENCYCLIDINE URINE NEGATIVE (NEGATIVE)
[2022-04-19] MEDS: THIAMINE 100 MG TAB PO SCH ×2 (05:45→21:32)
[2022-04-19] MEDS ORDERED: HEPARIN SOD (PORCINE) 5000UNITS/ML 1ML VIAL/SYRINGE SC SCH ×2 (06:00→21:00)
[2022-04-19 07:25] LABS: PERCENT SATURATION 91.9 % (13.2-45.0)
[2022-04-19] MEDS: LORazepam 2 MG TAB PO PRN ×3 (08:03→18:24)
[2022-04-19 08:12] LABS: ALBUMIN 2.3 GM/DL (3.2-5.2); ALT/SGPT 49 U/L (12-78); BLOOD UREA NITROGEN 3 MG/DL (7-18); CALCIUM LEVEL 8.1 MG/DL (8.5-10.1); CARBON DIOXIDE LEVEL 26 MEQ/L (21-32); CHLORIDE LEVEL 82 MEQ/L (98-107); CREATININE FOR GFR 0.56 MG/DL (0.55-1.30); GLOMERULAR FILTRATION RATE > 60.0 (>60); GLUCOSE, FASTING 77 MG/DL (70-100); POTASSIUM SERUM 3.3 MEQ/L (3.5-5.1); SODIUM LEVEL 123 MEQ/L (136-145); TOTAL PROTEIN 5.5 GM/DL (6.4-8.2)
[2022-04-19 08:35] LABS: HEMATOCRIT 25.3 % (36.0-47.0); HEMOGLOBIN 9.7 g/dl (12.0-15.5); MEAN CORPUSCULAR HEMOGLOBIN 34.2 pg (27.0-33.0); MEAN CORPUSCULAR VOLUME 89.1 fl (80.0-96.0); RED BLOOD COUNT 2.84 10^6/uL (4.00-5.40); WHITE BLOOD COUNT 9.8 10^3/uL (4.0-10.0)
[2022-04-19 08:36] LABS: MEAN CORPUSCULAR HGB CONC 38.3 g/dl (32.0-36.5); PLATELET COUNT, AUTOMATED 102 10^3/uL (150-450)
[2022-04-19] MEDS: predniSONE 20 MG TAB PO SCH (09:00)
[2022-04-19] MEDS: PANTOPRAZOLE 40MG TAB (PROTONIX) PO SCH (09:00)
[2022-04-19] MEDS ORDERED: SODIUM CHLORIDE 3% 500 ML IV SCH (09:00)
[2022-04-19] MEDS: MULTIVITAMINS/MINERALS THERAP 1 TAB PO SCH (11:20)
[2022-04-19] MEDS: FOLIC ACID 1 MG TAB PO SCH (11:20)
[2022-04-19] MEDS ORDERED: POTASSIUM CHLORIDE 10MEQ SR TABLET PO ONE (11:25)
[2022-04-19 12:00] LABS: HEPATITIS B SURFACE ANTIGEN NEGATIVE (NEGATIVE)
[2022-04-19 12:24] LABS: HEPATITIS C VIRUS ABY INDEX 0.1 INDEX (<0.8)
[2022-04-19 12:25] LABS: HEPATITIS B CORE ANTIBODY IGM NEGATIVE (NEGATIVE)
[2022-04-19 12:58] LABS: INR 2.01; PROTHROMBIN TIME 23.2 SECONDS (12.7-14.5)
[2022-04-19 18:25] VITALS: BP 108/68
[2022-04-19] MEDS ORDERED: LevoFLOXacin IV 750 MG in IV 1 EA IV SCH (20:00)
[2022-04-19] MEDS ORDERED: LevoFLOXacin IV 750 MG in IV 1 EA IV ONE (20:00)
[2022-04-19 20:17] VITALS: BP 100/56
[2022-04-19 20:57] LABS: BLOOD UREA NITROGEN 8 MG/DL (7-18); CALCIUM LEVEL 8.2 MG/DL (8.5-10.1); CARBON DIOXIDE LEVEL 28 MEQ/L (21-32); CHLORIDE LEVEL 93 MEQ/L (98-107); CREATININE FOR GFR 0.54 MG/DL (0.55-1.30); GLOMERULAR FILTRATION RATE > 60.0 (>60); GLUCOSE, FASTING 114 MG/DL (70-100); POTASSIUM SERUM 2.9 MEQ/L (3.5-5.1); SODIUM LEVEL 133 MEQ/L (136-145)
[2022-04-19] MEDS ORDERED: KCL 10MEQ/100ML SWI (KRUN) 10 MEQ in IV 1 EA IV ONE ×2 (21:00→22:00)
[2022-04-19] MEDS ORDERED: POTASSIUM CHLORIDE 10% LIQ 20 MEQ/15 ML UDC PO ONE (21:20)
[2022-04-20] VITALS (9 sets, daily range): BP systolic 92–125; BP diastolic 54–66
[2022-04-20 00:59] LABS: BLOOD UREA NITROGEN 8 MG/DL (7-18); CALCIUM LEVEL 7.9 MG/DL (8.5-10.1); CARBON DIOXIDE LEVEL 29 MEQ/L (21-32); CHLORIDE LEVEL 94 MEQ/L (98-107); CREATININE FOR GFR 0.89 MG/DL (0.55-1.30); GLOMERULAR FILTRATION RATE > 60.0 (>60); GLUCOSE, FASTING 140 MG/DL (70-100); POTASSIUM SERUM 3.5 MEQ/L (3.5-5.1); SODIUM LEVEL 129 MEQ/L (136-145)
[2022-04-20] MEDS: KCL 20MEQ IN D5W 1000ML 1,000 ML IV SCH ×3 (01:13→19:39)
[2022-04-20] MEDS: LORazepam 2 MG TAB PO PRN ×2 (01:14→23:00)
[2022-04-20 08:29] LABS: BASO % 0.2 % (0.0-1.0); EOS # 0.1 10^3/uL (0.0-0.5); EOS % 1.1 % (0.0-3.0); HEMATOCRIT 25.1 % (36.0-47.0); HEMOGLOBIN 9.2 g/dl (12.0-15.5); LYMPH # 1.7 10^3/uL (1.5-5.0); MEAN CORPUSCULAR HEMOGLOBIN 34.1 pg (27.0-33.0); MEAN CORPUSCULAR HGB CONC 36.7 g/dl (32.0-36.5); MONO # 1.1 10^3/uL (0.0-0.8); MONO % 12.2 % (2.0-8.0); NEUTROPHILS # 6.1 10^3/uL (1.5-8.5); NEUTROPHILS % 66.8 % (36.0-66.0); PLATELET COUNT, AUTOMATED 142 10^3/uL (150-450); WHITE BLOOD COUNT 9.1 10^3/uL (4.0-10.0)
[2022-04-20] MEDS: predniSONE 20 MG TAB PO SCH (08:29)
[2022-04-20] MEDS: PANTOPRAZOLE 40MG TAB (PROTONIX) PO SCH (08:29)
[2022-04-20] MEDS: THIAMINE 100 MG TAB PO SCH ×2 (08:29→21:24)
[2022-04-20] MEDS: MULTIVITAMINS/MINERALS THERAP 1 TAB PO SCH (08:29)
[2022-04-20] MEDS: FOLIC ACID 1 MG TAB PO SCH (08:29)
[2022-04-20 08:41] LABS: INR 1.67; PROTHROMBIN TIME 20.1 SECONDS (12.7-14.5)
[2022-04-20] MEDS ORDERED: MAG SULF 1GM/100ML (MAG RUN) 1 GM in IV 1 EA IV ONE (08:50)
[2022-04-20] MEDS ORDERED: INFLUENZA QUADRIVALENT PF VACCINE 0.5ML SYRINGE IM.IMMUN ONE (09:00)
[2022-04-20 09:04] LABS: ALBUMIN 2.3 GM/DL (3.2-5.2); ALT/SGPT 46 U/L (12-78); BLOOD UREA NITROGEN 6 MG/DL (7-18); CALCIUM LEVEL 8.6 MG/DL (8.5-10.1); CARBON DIOXIDE LEVEL 33 MEQ/L (21-32); CHLORIDE LEVEL 96 MEQ/L (98-107); CREATININE FOR GFR 0.62 MG/DL (0.55-1.30); GLOMERULAR FILTRATION RATE > 60.0 (>60); GLUCOSE, FASTING 114 MG/DL (70-100); POTASSIUM SERUM 3.3 MEQ/L (3.5-5.1); SODIUM LEVEL 134 MEQ/L (136-145); TOTAL PROTEIN 5.8 GM/DL (6.4-8.2)
[2022-04-20] MEDS ORDERED: POTASSIUM CHLORIDE 10MEQ SR TABLET PO ONE (10:05)
[2022-04-20] MEDS: LACTULOSE 20 GM/30 ML SYRUP UD PO SCH (11:27)
[2022-04-20 20:25] LABS: BLOOD UREA NITROGEN 6 MG/DL (7-18); CALCIUM LEVEL 8.3 MG/DL (8.5-10.1); CARBON DIOXIDE LEVEL 27 MEQ/L (21-32); CHLORIDE LEVEL 98 MEQ/L (98-107); GLOMERULAR FILTRATION RATE > 60.0 (>60); GLUCOSE, FASTING 233 MG/DL (70-100); POTASSIUM SERUM 3.9 MEQ/L (3.5-5.1); SODIUM LEVEL 130 MEQ/L (136-145)
[2022-04-21] VITALS: BP 95/59
[2022-04-21 04:00] VITALS: BP 102/61
[2022-04-21] MEDS: KCL 20MEQ IN D5W 1000ML 1,000 ML IV SCH (05:30)
[2022-04-21 06:28] LABS: INR 1.53; PROTHROMBIN TIME 18.8 SECONDS (12.7-14.5)
[2022-04-21 06:42] LABS: BASO % 0.1 % (0.0-1.0); EOS # 0.1 10^3/uL (0.0-0.5); HEMATOCRIT 22.4 % (36.0-47.0); HEMOGLOBIN 8.5 g/dl (12.0-15.5); LYMPH # 1.9 10^3/uL (1.5-5.0); LYMPH % 18.3 % (24.0-44.0); MEAN CORPUSCULAR HEMOGLOBIN 35.9 pg (27.0-33.0); MEAN CORPUSCULAR VOLUME 94.5 fl (80.0-96.0); MONO # 1.1 10^3/uL (0.0-0.8); MONO % 10.3 % (2.0-8.0); NEUTROPHILS # 7.4 10^3/uL (1.5-8.5); NEUTROPHILS % 69.4 % (36.0-66.0); PLATELET COUNT, AUTOMATED 144 10^3/uL (150-450); RED BLOOD COUNT 2.37 10^6/uL (4.00-5.40); WHITE BLOOD COUNT 10.6 10^3/uL (4.0-10.0)
[2022-04-21 06:52] LABS: ALBUMIN 2.1 GM/DL (3.2-5.2); ALT/SGPT 49 U/L (12-78); BILIRUBIN,TOTAL 6.4 MG/DL (0.2-1.0); BLOOD UREA NITROGEN 5 MG/DL (7-18); CALCIUM LEVEL 7.8 MG/DL (8.5-10.1); CARBON DIOXIDE LEVEL 30 MEQ/L (21-32); CHLORIDE LEVEL 101 MEQ/L (98-107); CREATININE FOR GFR 0.68 MG/DL (0.55-1.30); GLOMERULAR FILTRATION RATE > 60.0 (>60); GLUCOSE, FASTING 122 MG/DL (70-100); POTASSIUM SERUM 4.1 MEQ/L (3.5-5.1); SODIUM LEVEL 133 MEQ/L (136-145); TOTAL PROTEIN 5.1 GM/DL (6.4-8.2)
[2022-04-21 07:03] LABS: MEAN CORPUSCULAR HGB CONC 37.9 g/dl (32.0-36.5)
[2022-04-21 07:31] VITALS: BP 90/50
[2022-04-21] MEDS: PANTOPRAZOLE 40MG TAB (PROTONIX) PO SCH (10:05)
[2022-04-21] MEDS: THIAMINE 100 MG TAB PO SCH (10:06)
[2022-04-21] MEDS: MULTIVITAMINS/MINERALS THERAP 1 TAB PO SCH (10:06)
[2022-04-21] MEDS: FOLIC ACID 1 MG TAB PO SCH (10:06)
[2022-04-21] MEDS: predniSONE 20 MG TAB PO SCH (10:06)
[2022-04-21] MEDS: LACTULOSE 20 GM/30 ML SYRUP UD PO SCH (10:08)
[2022-04-21 12:29] VITALS: BP 101/57
[2022-04-21 13:08] VITALS: BP 113/68
[2022-04-21] MEDS ORDERED: THIA100TA PO (13:19)
[2022-04-21] MEDS ORDERED: HYDR-3363 PO (13:19)
[2022-04-21] MEDS ORDERED: FOLI1TAB11 PO (13:19)
[2022-04-21] MEDS ORDERED: PRED20TA PO (13:19)
[2022-04-21] MEDS ORDERED: VITMTA PO (13:19)
[2022-04-21] MEDS ORDERED: LACT20EL PO (13:19)
== END 2022-04-21 17:15 | disposition home or self-care (01) | DRG 280 ==
LOC: M ED 17:08 → M ED INP 04-19 → ENRESERV 04-19 17:14 → M PCU 04-19 19:23
PROVIDERS: ADMIT Family Medicine; ATTEND Internal Medicine
DX: K70.11 Alcoholic hepatitis with ascites (principal); G93.41 Metabolic encephalopathy; D68.9 Coagulation defect, unspecified; E87.2 Acidosis; R65.10 Systemic inflammatory response syndrome (SIRS) of non-infectious origin without acute organ dysfunction; K72.90 Hepatic failure, unspecified without coma; E87.1 Hypo-osmolality and hyponatremia; D69.6 Thrombocytopenia, unspecified; E87.6 Hypokalemia; E80.6 Other disorders of bilirubin metabolism; F10.239 Alcohol dependence with withdrawal, unspecified; F17.210 Nicotine dependence, cigarettes, uncomplicated; R41.0 Disorientation, unspecified; R74.01 Elevation of levels of liver transaminase levels; Z88.0 Allergy status to penicillin; Z79.899 Other long term (current) drug therapy; K70.31 Alcoholic cirrhosis of liver with ascites; K76.0 Fatty (change of) liver, not elsewhere classified

== ENCOUNTER 2022-04-30 23:44 | Emergency (ER) | payer OTHER ==
[~2022-04-30] VITALS: Ht 162.6 cm; Wt 73.2 kg
[~2022-04-30 23:44] MED LIST changes: +FOLI1TAB11 PO; +HYDR-3363 PO; +LACT20EL PO; +OMEP40CA5 PO; +SUCR1TAB56 PO; +THIA100TA PO
[2022-05-01] MEDS ORDERED: KETOROLAC 30 MG/ML 1ML VIAL IV ONE (01:50)
[2022-05-01 02:32] LABS: BASO # 0.1 10^3/uL (0.0-0.2); BASO % 0.7 % (0.0-1.0); EOS # 0.1 10^3/uL (0.0-0.5); EOS % 0.7 % (0.0-3.0); HEMATOCRIT 29.3 % (36.0-47.0); HEMOGLOBIN 10.4 g/dl (12.0-15.5); LYMPH # 2.1 10^3/uL (1.5-5.0); LYMPH % 17.2 % (24.0-44.0); MEAN CORPUSCULAR HEMOGLOBIN 35.7 pg (27.0-33.0); MEAN CORPUSCULAR HGB CONC 35.5 g/dl (32.0-36.5); MEAN CORPUSCULAR VOLUME 100.7 fl (80.0-96.0); MONO # 1.1 10^3/uL (0.0-0.8); MONO % 9.3 % (2.0-8.0); NEUTROPHILS # 8.6 10^3/uL (1.5-8.5); NEUTROPHILS % 71.8 % (36.0-66.0); PLATELET COUNT, AUTOMATED 239 10^3/uL (150-450); RED BLOOD COUNT 2.91 10^6/uL (4.00-5.40)
[2022-05-01 02:43] LABS: INR 1.22; PROTHROMBIN TIME 15.8 SECONDS (12.7-14.5)
[2022-05-01 03:10] LABS: ALBUMIN 2.2 GM/DL (3.2-5.2); ALT/SGPT 31 U/L (12-78); BILIRUBIN,TOTAL 3.1 MG/DL (0.2-1.0); BLOOD UREA NITROGEN 7 MG/DL (7-18); CALCIUM LEVEL 7.1 MG/DL (8.5-10.1); CARBON DIOXIDE LEVEL 22 MEQ/L (21-32); CHLORIDE LEVEL 112 MEQ/L (98-107); CREATININE FOR GFR 0.56 MG/DL (0.55-1.30); ETHYL ALCOHOL (ETHANOL) < 0.003 % (0.000-0.010); GLOMERULAR FILTRATION RATE > 60.0 (>60); GLUCOSE, FASTING 109 MG/DL (70-100); MAGNESIUM LEVEL 1.7 MG/DL (1.8-2.4); POTASSIUM SERUM 2.5 MEQ/L (3.5-5.1); SODIUM LEVEL 143 MEQ/L (136-145); TOTAL PROTEIN 5.5 GM/DL (6.4-8.2)
[2022-05-01] MEDS ORDERED: KCL 10MEQ/100ML SWI (KRUN) 10 MEQ in IV 1 EA IV ONE (03:20)
[2022-05-01] MEDS ORDERED: POTASSIUM CHLORIDE 10MEQ SR TABLET PO ONE (04:00)
[2022-05-01] MEDS ORDERED: MORPHINE 4 MG/ML 1ML VIAL/SYRINGE IV ONE ×2 (04:45→10:00)
[2022-05-01] MEDS ORDERED: ONDANSETRON 4MG/2ML VIAL IV ONE ×2 (04:50→10:20)
[2022-05-01] MEDS ORDERED: MAG SULF 1GM/100ML (MAG RUN) 1 GM in IV 1 EA IV ONE (04:55)
[2022-05-01] MEDS ORDERED: LevoFLOXacin IV 500 MG in IV 1 EA IV ONE (06:00)
[2022-05-01] MEDS ORDERED: LORazepam 1 MG TAB PO STA (06:25)
[2022-05-01 06:27] LABS: AMPHETAMINES LEVEL URINE NEGATIVE (NEGATIVE); BARBITURATES URINE NEGATIVE (NEGATIVE); BENZODIAZEPINES URINE NEGATIVE (NEGATIVE); CANNABINOIDS URINE NEGATIVE (NEGATIVE); COCAINE METABOLITE URINE NEGATIVE (NEGATIVE); METHADONE URINE NEGATIVE (NEGATIVE); OPIATES URINE NEGATIVE (NEGATIVE); PHENCYCLIDINE URINE NEGATIVE (NEGATIVE)
[2022-05-01 08:07] LABS: RSV AMPLIFICATION NEGATIVE (NEGATIVE)
[2022-05-01 10:39] VITALS: BP 116/85
== END 2022-05-01 10:41 | disposition short-term general hospital (02) ==
LOC: M ED 23:44
DX: R18.8 Other ascites (principal); K76.0 Fatty (change of) liver, not elsewhere classified; K21.9 Gastro-esophageal reflux disease without esophagitis; Z98.84 Bariatric surgery status; Z95.828 Presence of other vascular implants and grafts; Z79.899 Other long term (current) drug therapy; Z88.0 Allergy status to penicillin
CPT/HCPCS: 71045; 74176; 80053; 80307; 81001; 82077; 82140; 83605; 83735; 85025; 85610; 85730; 87631; 96365; 96375; 96376; 99284; J1885; J1956; J2270; J2405; J3475

== ENCOUNTER → 2022-05-11 | Outpatient (CLI) | payer OTHER ==
[2022-05-11 17:49] LABS: APPEARANCE, URINE CLOUDY (CLEAR); BACTERIA, URINE AUTO NEGATIVE (NEGATIVE); BILIRUBIN, URINE AUTO NEGATIVE (NEGATIVE); BLOOD, URINE BLOOD NEGATIVE (NEGATIVE); CALCIUM OXALATE CRYSTALS SMALL; COLOR, URINE AMBER (YELLOW); GLUCOSE, URINE (UA) AUTO NEGATIVE (NEGATIVE); KETONE, URINE AUTO NEGATIVE (NEGATIVE); LEUKOCYTE ESTERASE, URINE AUTO NEGATIVE (NEGATIVE); MUCUS, URINE SMALL (NEGATIVE); NITRITE, URINE AUTO NEGATIVE (NEGATIVE); PROTEIN, URINE AUTO 1+ mg/dL (NEGATIVE); RBC, URINE AUTO 0 /HPF (0-3); SQUAMOUS EPITHELIAL CELL UR AU 1 /HPF (0-6); UROBILINOGEN, URINE AUTO 0.2 mg/dL (0.0-2.0); WBC, URINE AUTO 3 /HPF (0-3)
[2022-05-11 17:52] LABS: BASO # 0.1 10^3/uL (0.0-0.2); BASO % 1.3 % (0.0-1.0); EOS # 0.1 10^3/uL (0.0-0.5); EOS % 1.9 % (0.0-3.0); HEMATOCRIT 31.3 % (36.0-47.0); HEMOGLOBIN 10.6 g/dl (12.0-15.5); LYMPH % 43.9 % (24.0-44.0); MEAN CORPUSCULAR HEMOGLOBIN 34.3 pg (27.0-33.0); MEAN CORPUSCULAR HGB CONC 33.9 g/dl (32.0-36.5); MEAN CORPUSCULAR VOLUME 101.3 fl (80.0-96.0); MONO # 0.7 10^3/uL (0.0-0.8); MONO % 10.5 % (2.0-8.0); NEUTROPHILS # 2.9 10^3/uL (1.5-8.5); NEUTROPHILS % 42.3 % (36.0-66.0); PLATELET COUNT, AUTOMATED 296 10^3/uL (150-450); RED BLOOD COUNT 3.09 10^6/uL (4.00-5.40); WHITE BLOOD COUNT 6.8 10^3/uL (4.0-10.0)
[2022-05-11 17:57] LABS: ALBUMIN 2.8 GM/DL (3.2-5.2); ALT/SGPT 27 U/L (12-78); AMYLASE 34 U/L (25-115); BILIRUBIN,TOTAL 2.5 MG/DL (0.2-1.0); BLOOD UREA NITROGEN 2 MG/DL (7-18); CALCIUM LEVEL 8.1 MG/DL (8.5-10.1); CARBON DIOXIDE LEVEL 27 MEQ/L (21-32); CHLORIDE LEVEL 110 MEQ/L (98-107); CREATININE FOR GFR 0.58 MG/DL (0.55-1.30); GLOMERULAR FILTRATION RATE > 60.0 (>60); GLUCOSE, FASTING 93 MG/DL (70-100); LIPASE 145 U/L (73-393); NT-PRO BNP 227 PG/ML (<125); SODIUM LEVEL 145 MEQ/L (136-145); TOTAL PROTEIN 6.4 GM/DL (6.4-8.2)
[2022-05-11 18:09] LABS: VITAMIN B12 LEVEL > 2000 PG/ML
[2022-05-11 18:11] LABS: FOLATE 18.1 NG/ML
== END ==
LOC: M PLALAB 14:09
PROVIDERS: ATTEND Physician Assistant
DX: R18.8 Other ascites (principal); R41.0 Disorientation, unspecified

== ENCOUNTER → 2022-05-25 | Outpatient (CLI) | payer OTHER ==
[2022-05-25 13:38] LABS: INR 1.41; PROTHROMBIN TIME 17.7 SECONDS (12.7-14.5)
[2022-05-25 13:39] LABS: PARTIAL THROMBOPLASTIN TIME 37.7 SECONDS (25.9-37.0)
[2022-05-25 14:12] LABS: HEMATOCRIT 33.9 % (36.0-47.0); HEMOGLOBIN 11.4 g/dl (12.0-15.5); MEAN CORPUSCULAR HEMOGLOBIN 31.9 pg (27.0-33.0); MEAN CORPUSCULAR HGB CONC 33.6 g/dl (32.0-36.5); PLATELET COUNT, AUTOMATED 231 10^3/uL (150-450); RED BLOOD COUNT 3.57 10^6/uL (4.00-5.40); WHITE BLOOD COUNT 6.9 10^3/uL (4.0-10.0)
[2022-05-25 14:48] LABS: ALBUMIN 2.5 GM/DL (3.2-5.2); ALT/SGPT 26 U/L (12-78); BILIRUBIN,TOTAL 2.2 MG/DL (0.2-1.0); BLOOD UREA NITROGEN 4 MG/DL (7-18); CALCIUM LEVEL 8.5 MG/DL (8.5-10.1); CARBON DIOXIDE LEVEL 27 MEQ/L (21-32); CHLORIDE LEVEL 106 MEQ/L (98-107); CREATININE FOR GFR 0.78 MG/DL (0.55-1.30); GLOMERULAR FILTRATION RATE > 60.0 (>60); GLUCOSE, FASTING 97 MG/DL (70-100); POTASSIUM SERUM 3.8 MEQ/L (3.5-5.1); SODIUM LEVEL 140 MEQ/L (136-145); TOTAL PROTEIN 5.8 GM/DL (6.4-8.2)
== END ==
LOC: M PLALAB 10:35
PROVIDERS: ATTEND Internal Medicine Gastroenterology
DX: R94.5 Abnormal results of liver function studies (principal)

== ENCOUNTER → 2022-05-25 | Outpatient (CLI) | payer OTHER ==
[2022-05-25 13:23] LABS: BASO # 0.1 10^3/uL (0.0-0.2); BASO % 1.2 % (0.0-1.0); EOS # 0.1 10^3/uL (0.0-0.5); EOS % 1.9 % (0.0-3.0); HEMATOCRIT 34.2 % (36.0-47.0); HEMOGLOBIN 11.4 g/dl (12.0-15.5); LYMPH # 1.9 10^3/uL (1.5-5.0); LYMPH % 28.4 % (24.0-44.0); MEAN CORPUSCULAR HEMOGLOBIN 31.6 pg (27.0-33.0); MEAN CORPUSCULAR HGB CONC 33.3 g/dl (32.0-36.5); MEAN CORPUSCULAR VOLUME 94.7 fl (80.0-96.0); MONO # 0.8 10^3/uL (0.0-0.8); MONO % 12.4 % (2.0-8.0); NEUTROPHILS # 3.7 10^3/uL (1.5-8.5); NEUTROPHILS % 55.8 % (36.0-66.0); PLATELET COUNT, AUTOMATED 232 10^3/uL (150-450); RED BLOOD COUNT 3.61 10^6/uL (4.00-5.40); WHITE BLOOD COUNT 6.7 10^3/uL (4.0-10.0)
[2022-05-25 14:49] LABS: ALBUMIN 2.5 GM/DL (3.2-5.2); ALT/SGPT 26 U/L (12-78); BILIRUBIN,TOTAL 2.1 MG/DL (0.2-1.0); BLOOD UREA NITROGEN 3 MG/DL (7-18); CALCIUM LEVEL 8.3 MG/DL (8.5-10.1); CARBON DIOXIDE LEVEL 26 MEQ/L (21-32); CHLORIDE LEVEL 106 MEQ/L (98-107); CREATININE FOR GFR 0.75 MG/DL (0.55-1.30); FERRITIN 394 NG/ML (8-252); GLOMERULAR FILTRATION RATE > 60.0 (>60); GLUCOSE, FASTING 97 MG/DL (70-100); IRON (FE) 95 UG/DL (50-170); POTASSIUM SERUM 3.8 MEQ/L (3.5-5.1); SODIUM LEVEL 139 MEQ/L (136-145); TOTAL PROTEIN 5.8 GM/DL (6.4-8.2)
[2022-05-25 15:11] LABS: VITAMIN B12 LEVEL 1951 PG/ML (247-911)
== END ==
LOC: M PLALAB 10:36
PROVIDERS: ATTEND Physician Assistant
DX: E87.6 Hypokalemia (principal)

== ENCOUNTER → 2022-06-04 | Outpatient (CLI) | payer OTHER | LOC: M CARPUL 10:32 | PROVIDERS: ATTEND Physician Assistant | DX: R79.89 Other specified abnormal findings of blood chemistry (principal); I08.1 Rheumatic disorders of both mitral and tricuspid valves ==

== ENCOUNTER → 2022-06-15 | Outpatient (CLI) | payer OTHER ==
[2022-06-15 15:47] LABS: ALBUMIN 2.9 GM/DL (3.2-5.2); ALT/SGPT 35 U/L (12-78); BILIRUBIN,TOTAL 1.1 MG/DL (0.2-1.0); BLOOD UREA NITROGEN 5 MG/DL (7-18); CALCIUM LEVEL 8.9 MG/DL (8.5-10.1); CARBON DIOXIDE LEVEL 25 MEQ/L (21-32); CHLORIDE LEVEL 109 MEQ/L (98-107); CREATININE FOR GFR 0.78 MG/DL (0.55-1.30); GLOMERULAR FILTRATION RATE > 60.0 (>60); GLUCOSE, FASTING 91 MG/DL (70-100); POTASSIUM SERUM 4.1 MEQ/L (3.5-5.1); SODIUM LEVEL 143 MEQ/L (136-145); TOTAL PROTEIN 6.5 GM/DL (6.4-8.2)
== END ==
LOC: M PLALAB 13:28
PROVIDERS: ATTEND Physician Assistant
DX: E87.6 Hypokalemia (principal)

== ENCOUNTER → 2022-07-29 | Outpatient (CLI) | payer OTHER ==
[2022-07-29 17:25] LABS: BASO % 0.8 % (0.0-1.0); EOS % 0.8 % (0.0-3.0); HEMOGLOBIN 13.2 g/dl (12.0-15.5); LYMPH % 41.4 % (24.0-44.0); MEAN CORPUSCULAR HEMOGLOBIN 29.5 pg (27.0-33.0); MEAN CORPUSCULAR VOLUME 89.5 fl (80.0-96.0); MONO # 0.5 10^3/uL (0.0-0.8); MONO % 9.5 % (2.0-8.0); NEUTROPHILS # 2.2 10^3/uL (1.5-8.5); NEUTROPHILS % 47.3 % (36.0-66.0); PLATELET COUNT, AUTOMATED 135 10^3/uL (150-450); RED BLOOD COUNT 4.47 10^6/uL (4.00-5.40); WHITE BLOOD COUNT 4.7 10^3/uL (4.0-10.0)
[2022-07-29 18:10] LABS: ALBUMIN 2.9 GM/DL (3.2-5.2); ALT/SGPT 40 U/L (12-78); BILIRUBIN,TOTAL 0.7 MG/DL (0.2-1.0); BLOOD UREA NITROGEN 5 MG/DL (7-18); CALCIUM LEVEL 8.2 MG/DL (8.5-10.1); CARBON DIOXIDE LEVEL 25 MEQ/L (21-32); CHLORIDE LEVEL 104 MEQ/L (98-107); GLOMERULAR FILTRATION RATE > 60.0 (>58); GLUCOSE, FASTING 105 MG/DL (70-100); POTASSIUM SERUM 5.6 MEQ/L (3.5-5.1); SODIUM LEVEL 135 MEQ/L (136-145); TOTAL PROTEIN 6.7 GM/DL (6.4-8.2)
== END ==
LOC: M PLALAB 14:24
PROVIDERS: ATTEND Physician Assistant
DX: E87.6 Hypokalemia (principal)